=== PATIENT | female | born 1965 | race Caucasian/White ===

== ENCOUNTER 2017-12-20 13:48 | Emergency (ER) | payer MEDICARE, MEDICAID ==
[~2017-12-20] VITALS: Ht 5619.3 cm; Wt 132.8 kg
[~2017-12-20 13:48] MED LIST: ALPR-624 PO; ASPI-1 PO; BUDE10.2 INH; CLA10T PO; DULO-31 PO; ESTR1PAT77 TOP; FLUT16SP10 NS; IBUP-1984 PO; LUBI8CAP PO; MEDR2.5T PO; MONT10TA21 PO; PER10325T PO; RANI150C11 PO; SYN0.075T PO; TOP25T PO; TRAZ-91 PO
[2017-12-20 14:16] VITALS: BP 156/75
[2017-12-20] MEDS ORDERED: AZIT-57 PO (14:23)
== END 2017-12-20 14:30 | disposition home or self-care (01) ==
LOC: ER 13:48
DX: J20.9 Acute bronchitis, unspecified (principal); J45.909 Unspecified asthma, uncomplicated; G89.29 Other chronic pain; Z60.2 Problems related to living alone; Z56.0 Unemployment, unspecified; Z79.82 Long term (current) use of aspirin; Z79.899 Other long term (current) drug therapy
CPT/HCPCS: 99283

== ENCOUNTER 2017-12-27 13:15 | Emergency (ER) | payer MEDICARE, MEDICAID ==
[~2017-12-27] VITALS: Ht 5187.1 cm; Wt 132.0 kg
[2017-12-27 14:15] LABS: BASOPHILS % (AUTO) 0.3 % (0-1); EOSINOPHILS # (AUTO) 0.2 X10'3 (0-0.9); EOSINOPHILS % (AUTO) 2.8 % (0-6); HEMATOCRIT 32.3 % (35.0-45.0); HEMOGLOBIN 11.1 g/dl (12.0-16.0); LYMPHOCYTES # (AUTO) 1.5 X10'3 (1.1-4.8); MEAN CORPUSCULAR HEMOGLOBIN 30.4 PG (27.0-31.0); MEAN CORPUSCULAR HGB CONC 34.3 % (33.0-36.5); MEAN CORPUSCULAR VOLUME 88.5 FL (78-98); MEAN PLATELET VOLUME 7.3 FL (7.4-10.4); MONOCYTES # (AUTO) 0.4 X10'3 (0-0.9); MONOCYTES % (AUTO) 5.3 % (2-12); NEUTROPHILS # (AUTO) 5.2 X10'3 (1.8-7.7); NEUTROPHILS % (AUTO) 70.6 % (42-75); PLATELET COUNT 310 X10'3 (140-440); RED BLOOD COUNT 3.65 X10'6 (4.20-5.60); RED CELL DISTRIBUTION WIDTH 15.2 % (11.5-14.5); WHITE BLOOD COUNT 7.3 X10'3 (4.5-11.0)
[2017-12-27 14:33] LABS: ALANINE AMINOTRANSFERASE 25 U/L (12-78); ALBUMIN 3.5 G/DL (3.4-5.0); ALBUMIN/GLOBULIN RATIO 0.9 (1.1-1.5); ALKALINE PHOSPHATASE 84 IU/L (46-116); ANION GAP 8 (8-16); ASPARTATE AMINO TRANSFERASE 17 U/L (10-37); BILIRUBIN,TOTAL 0.2 MG/DL (0.1-1.0); BLOOD UREA NITROGEN 17 MG/DL (7-18); BUN/CREATININE RATIO 16.3 (6.6-38.0); CALCIUM 8.8 MG/DL (8.5-10.1); CHLORIDE 103 MMOL/L (99-107); CREATINE KINASE 119 U/L (26-192); CREATININE 1.04 MG/DL (0.40-0.90); GLUCOSE 107 MG/DL (70-104); MAGNESIUM 2.1 MG/DL (1.5-2.4); SODIUM 138 MMOL/L (135-145); TOTAL CARBON DIOXIDE 26.9 MMOL/L (24-32); TOTAL PROTEIN 7.2 G/DL (6.4-8.2); eGFR 56 ML/MIN
[2017-12-27 16:34] VITALS: BP 151/89
== END 2017-12-27 16:36 | disposition home or self-care (01) ==
LOC: ER 13:15
DX: D64.9 Anemia, unspecified (principal); R60.9 Edema, unspecified; J45.909 Unspecified asthma, uncomplicated; M19.90 Unspecified osteoarthritis, unspecified site; G89.29 Other chronic pain; G43.909 Migraine, unspecified, not intractable, without status migrainosus; Z60.2 Problems related to living alone; Z56.0 Unemployment, unspecified; Z88.8 Allergy status to other drugs, medicaments and biological substances; Z79.82 Long term (current) use of aspirin; Z79.899 Other long term (current) drug therapy
CPT/HCPCS: 36415; 80053; 82550; 83735; 83880; 84484; 85025; 93005; 93306; 99285

== ENCOUNTER 2019-02-10 17:54 | Emergency (ER) | payer MEDICARE, MEDICAID ==
[~2019-02-10] VITALS: Ht 170.2 cm; Wt 159.1 kg
[2019-02-10 19:56] LABS: BASOPHILS % (AUTO) 0.5 % (0-1); EOSINOPHILS # (AUTO) 0.2 X10'3 (0-0.9); EOSINOPHILS % (AUTO) 3.1 % (0-6); HEMATOCRIT 30.9 % (35.0-45.0); HEMOGLOBIN 10.4 g/dl (12.0-16.0); LYMPHOCYTES # (AUTO) 1.4 X10'3 (1.1-4.8); LYMPHOCYTES % (AUTO) 26.4 % (21-51); MEAN CORPUSCULAR HEMOGLOBIN 29.6 PG (27.0-31.0); MEAN CORPUSCULAR HGB CONC 33.6 g/dL (33.0-36.5); MEAN CORPUSCULAR VOLUME 88.1 FL (78-98); MEAN PLATELET VOLUME 7.3 FL (7.4-10.4); MONOCYTES # (AUTO) 0.5 X10'3 (0-0.9); MONOCYTES % (AUTO) 9.6 % (2-12); NEUTROPHILS # (AUTO) 3.2 X10'3 (1.8-7.7); NEUTROPHILS % (AUTO) 60.4 % (42-75); PLATELET COUNT 212 X10'3 (140-440); RED BLOOD COUNT 3.51 X10'6 (4.20-5.60); RED CELL DISTRIBUTION WIDTH 15.9 % (11.5-14.5); WHITE BLOOD COUNT 5.3 X10'3 (4.5-11.0)
[2019-02-10 20:11] LABS: ALANINE AMINOTRANSFERASE 22 U/L (12-78); ALBUMIN 3.4 G/DL (3.4-5.0); ALKALINE PHOSPHATASE 101 IU/L (46-116); ANION GAP 7 (8-16); ASPARTATE AMINO TRANSFERASE 14 U/L (10-37); BILIRUBIN,TOTAL 0.2 MG/DL (0.1-1.0); BLOOD UREA NITROGEN 14 MG/DL (7-18); BUN/CREATININE RATIO 14.3 (6.6-38.0); CALCIUM 8.7 MG/DL (8.5-10.1); CHLORIDE 106 MMOL/L (99-107); CREATININE 0.98 MG/DL (0.40-0.90); GLUCOSE 109 MG/DL (70-104); SODIUM 139 MMOL/L (135-145); TOTAL CARBON DIOXIDE 25.6 MMOL/L (24-32); TOTAL PROTEIN 6.9 G/DL (6.4-8.2); eGFR 60 ML/MIN
[2019-02-10] MEDS ORDERED: ipratropium/albuterol 3ml nebule NEB ONE (20:30)
[2019-02-10] MEDS ORDERED: ondansetron/PF 4mg/2ml inj IV ONE (20:35)
--- NOTE | 2019-02-10 20:45 | NUR ---
RT at bedside for breathing tx
[2019-02-10 20:47] VITALS: BP 144/72
[2019-02-10] MEDS ORDERED: iohexol 350MG/ML 100ml bottle IV ONE (20:51)
[2019-02-10] MEDS ORDERED: CefTRIAXone/D5W-Rocephin 1gm 50 ML IV ONE (21:50)
[2019-02-10] MEDS ORDERED: furosemide 10 MG/1 ML 10ml inj IV ONE (21:50)
== END 2019-02-10 22:31 | disposition home or self-care (01) ==
LOC: ER 17:54
DX: R06.02 Shortness of breath (principal); R60.0 Localized edema; G43.909 Migraine, unspecified, not intractable, without status migrainosus; J45.909 Unspecified asthma, uncomplicated; M19.90 Unspecified osteoarthritis, unspecified site; G89.29 Other chronic pain; Z56.0 Unemployment, unspecified; Z90.49 Acquired absence of other specified parts of digestive tract; Z98.890 Other specified postprocedural states; Z88.8 Allergy status to other drugs, medicaments and biological substances; Z88.1 Allergy status to other antibiotic agents; Z79.899 Other long term (current) drug therapy; Z79.82 Long term (current) use of aspirin
CPT/HCPCS: 36415; 71046; 71275; 80053; 83605; 83880; 84145; 85025; 87040; 93005; 94640; 94760; 96374; 96375; 99284; J0696; J1940; J2405; Q9967

== ENCOUNTER 2019-04-01 13:17 | Emergency (ER) | payer MEDICARE, MEDICAID ==
[~2019-04-01] VITALS: Ht 167.6 cm; Wt 145.9 kg
[~2019-04-01 13:17] MED LIST changes: -ALPR-624 PO; -ASPI-1 PO; -PER10325T PO
[2019-04-01 13:27] VITALS: BP 129/67
[2019-04-01 13:53] LABS: CLARITY,URINE CLEAR (Clear); COLOR,URINE YELLOW (Yellow); GLUCOSE, URINE NEGATIVE (Neg); KETONES,URINE NEGATIVE (Neg); LEUKOCYTE ESTERASE ,URINE NEGATIVE (Neg); NITRITES, URINE NEGATIVE (Neg); OCCULT BLOOD,URINE NEGATIVE (Neg); PROTEIN,URINE NEGATIVE (Neg); UROBILINOGEN,URINE 0.2 E.U/dL (0.2-1.0)
[2019-04-01] MEDS ORDERED: ketorolac tromethamine 15mg/ml inj. IM ONE (13:55)
[2019-04-01 13:56] LABS: UA COLLECTION TYPE CLN CATCH MIDSTREAM
[2019-04-01] MEDS ORDERED: ONDA4TAB6 PO (14:09)
[2019-04-01] MEDS ORDERED: LIDO700A32 TOP (14:09)
== END 2019-04-01 14:28 | disposition home or self-care (01) ==
LOC: ER 13:18
DX: M54.5 Low back pain (principal); R11.0 Nausea; R30.9 Painful micturition, unspecified; G43.909 Migraine, unspecified, not intractable, without status migrainosus; G89.29 Other chronic pain; J45.909 Unspecified asthma, uncomplicated; E07.9 Disorder of thyroid, unspecified; F41.9 Anxiety disorder, unspecified; F32.9 Major depressive disorder, single episode, unspecified; Z90.89 Acquired absence of other organs; Z56.0 Unemployment, unspecified; Z88.1 Allergy status to other antibiotic agents; Z79.899 Other long term (current) drug therapy
CPT/HCPCS: 81003; 96372; 99283; J1885

== ENCOUNTER 2019-05-21 06:58 | Emergency (ER) | payer MEDICARE, MEDICAID ==
[~2019-05-21] VITALS: Ht 170.2 cm; Wt 158.0 kg
[~2019-05-21 06:58] MED LIST changes: +ALBU18HF2 INH; +ARIP2TAB11 PO; +BUPR1TAB36 MT; +CALC1TAB97 PO; +CEPH500C5 PO; -CLA10T PO; -ESTR1PAT77 TOP; +ESTR1PAT82 TOP; +NYSPWD TOP; +PREG150C PO; -RANI150C11 PO; +RANI150T8 PO
[2019-05-21 08:25] LABS: BASOPHILS # (AUTO) 0.1 X10'3 (0-0.2); LYMPHOCYTES # (AUTO) 1.3 X10'3 (1.1-4.8)
[2019-05-21 08:27] LABS: BASOPHILS % (AUTO) 1.1 % (0-1); EOSINOPHILS # (AUTO) 0.3 X10'3 (0-0.9); EOSINOPHILS % (AUTO) 2.9 % (0-6); HEMATOCRIT 30.1 % (35.0-45.0); HEMOGLOBIN 10.1 g/dl (12.0-16.0); LYMPHOCYTES % (AUTO) 14.1 % (21-51); MEAN CORPUSCULAR HEMOGLOBIN 32.6 PG (27.0-31.0); MEAN CORPUSCULAR HGB CONC 33.6 g/dL (33.0-36.5); MEAN CORPUSCULAR VOLUME 96.8 FL (78-98); MEAN PLATELET VOLUME 7.8 FL (7.4-10.4); MONOCYTES # (AUTO) 0.4 X10'3 (0-0.9); MONOCYTES % (AUTO) 4.8 % (2-12); NEUTROPHILS # (AUTO) 7.2 X10'3 (1.8-7.7); NEUTROPHILS % (AUTO) 77.1 % (42-75); PLATELET COUNT 290 X10'3 (140-440); RED BLOOD COUNT 3.11 X10'6 (4.20-5.60); RED CELL DISTRIBUTION WIDTH 18.2 % (11.5-14.5); WHITE BLOOD COUNT 9.4 X10'3 (4.5-11.0)
[2019-05-21 08:30] LABS: LARGE PLATELETS FEW; PLATELET ESTIMATE NORMAL
[2019-05-21 08:38] LABS: PARTIAL THROMBOPLASTIN TIME 28 SECONDS (22-32)
[2019-05-21 08:45] LABS: ALANINE AMINOTRANSFERASE 19 U/L (12-78); ALBUMIN 3.7 G/DL (3.4-5.0); ALKALINE PHOSPHATASE 95 IU/L (46-116); ANION GAP 8 (8-16); ASPARTATE AMINO TRANSFERASE 12 U/L (10-37); BILIRUBIN,TOTAL 0.3 MG/DL (0.1-1.0); BLOOD UREA NITROGEN 17 MG/DL (7-18); CALCIUM 9.2 MG/DL (8.5-10.1); CHLORIDE 105 MMOL/L (99-107); CREATININE 1.13 MG/DL (0.40-0.90); GLUCOSE 104 MG/DL (70-104); SODIUM 137 MMOL/L (135-145); TOTAL CARBON DIOXIDE 24.3 MMOL/L (24-32); TOTAL PROTEIN 7.4 G/DL (6.4-8.2); eGFR 51 ML/MIN
[2019-05-21] MEDS ORDERED: ketorolac trometh inj. 60 MG/2 ML VIAL IM ONE (09:35)
[2019-05-21 10:03] VITALS: BP 168/84
== END 2019-05-21 10:04 | disposition home or self-care (01) ==
LOC: ER 06:58
DX: M25.562 Pain in left knee (principal); G43.909 Migraine, unspecified, not intractable, without status migrainosus; J45.909 Unspecified asthma, uncomplicated; E07.9 Disorder of thyroid, unspecified; M19.90 Unspecified osteoarthritis, unspecified site; G89.29 Other chronic pain; F41.9 Anxiety disorder, unspecified; F32.9 Major depressive disorder, single episode, unspecified; F41.0 Panic disorder [episodic paroxysmal anxiety]; Z90.49 Acquired absence of other specified parts of digestive tract; Z98.890 Other specified postprocedural states; Z56.0 Unemployment, unspecified; Z88.1 Allergy status to other antibiotic agents; Z88.8 Allergy status to other drugs, medicaments and biological substances; Z79.2 Long term (current) use of antibiotics; Z79.899 Other long term (current) drug therapy
CPT/HCPCS: 36415; 71045; 73564; 80053; 85025; 85610; 85730; 93971; 96372; 99284; J1885

== ENCOUNTER 2019-06-19 20:31 | Emergency (ER) | payer MEDICARE, MEDICAID ==
[~2019-06-19] VITALS: Ht 170.2 cm; Wt 141.8 kg
[~2019-06-19 20:31] MED LIST changes: -ARIP2TAB11 PO; +ARIP2TAB20 PO
--- NOTE | 2019-06-19 21:15 | NUR ---
pt amb with steady gait to restroom, using walker
[2019-06-19] MEDS ORDERED: ketorolac trometh inj. 60 MG/2 ML VIAL IM ONE (23:10)
--- NOTE | 2019-06-19 23:40 | NUR ---
pt would like pain medication, "toradol is not cutting it", Rajeev GIANG at bedside to talk with pt, gave verbal order for norco 5mg 1 tab x1 now
[2019-06-19] MEDS ORDERED: HYDROcodone/acetaminophen 5mg/325mg tablet PO ONE (23:45)
[2019-06-19 23:50] VITALS: BP 176/75
== END 2019-06-19 23:47 | disposition home or self-care (01) ==
LOC: ER 20:31
DX: R10.32 Left lower quadrant pain (principal); R00.0 Tachycardia, unspecified; E66.01 Morbid (severe) obesity due to excess calories; G43.909 Migraine, unspecified, not intractable, without status migrainosus; J45.909 Unspecified asthma, uncomplicated; M19.90 Unspecified osteoarthritis, unspecified site; G89.29 Other chronic pain; F41.9 Anxiety disorder, unspecified; F32.9 Major depressive disorder, single episode, unspecified; F41.0 Panic disorder [episodic paroxysmal anxiety]; Z88.1 Allergy status to other antibiotic agents; Z88.8 Allergy status to other drugs, medicaments and biological substances; Z79.899 Other long term (current) drug therapy; Z87.19 Personal history of other diseases of the digestive system; Z90.49 Acquired absence of other specified parts of digestive tract; Z56.0 Unemployment, unspecified; Z60.2 Problems related to living alone; Z98.890 Other specified postprocedural states; Z90.89 Acquired absence of other organs; Z87.09 Personal history of other diseases of the respiratory system; Z96.653 Presence of artificial knee joint, bilateral
CPT/HCPCS: 96372; 99283; J1885

== ENCOUNTER 2019-12-15 05:27 | Day surgery (SDC) | payer MEDICARE, MEDICAID ==
[2019-12-05 16:56] LABS: BASOPHILS # (AUTO) 0.1 X10'3 (0-0.2); BASOPHILS % (AUTO) 0.8 % (0-1); EOSINOPHILS # (AUTO) 0.2 X10'3 (0-0.9); EOSINOPHILS % (AUTO) 1.8 % (0-6); LYMPHOCYTES # (AUTO) 1.9 X10'3 (1.1-4.8); LYMPHOCYTES % (AUTO) 20.4 % (21-51); MEAN CORPUSCULAR HEMOGLOBIN 30.8 PG (27.0-31.0); MEAN CORPUSCULAR HGB CONC 33.6 g/dL (33.0-36.5); MEAN CORPUSCULAR VOLUME 91.6 FL (78-98); MEAN PLATELET VOLUME 7.3 FL (7.4-10.4); MONOCYTES # (AUTO) 0.6 X10'3 (0-0.9); MONOCYTES % (AUTO) 6.6 % (2-12); NEUTROPHILS # (AUTO) 6.5 X10'3 (1.8-7.7); NEUTROPHILS % (AUTO) 70.4 % (42-75); PRE OP HEMATOCRIT 36.3 % (35.0-45.0); PRE OP HEMOGLOBIN 12.2 g/dL (12.0-16.0); PRE OP PLATELET COUNT 287 X10'3 (140-440); RED BLOOD COUNT 3.96 X10'6 (4.20-5.60)
[2019-12-05 17:08] LABS: PRE OP PROTIME 9.9 SECONDS (9.0-12.0)
[2019-12-05 17:13] LABS: ALBUMIN 4.1 G/DL (3.4-5.0); ALBUMIN/GLOBULIN RATIO 1.1 (1.1-1.5); ALKALINE PHOSPHATASE 115 IU/L (46-116); BLOOD UREA NITROGEN 16 MG/DL (7-18); BUN/CREATININE RATIO 14.3 (6.6-38.0); CALCIUM 9.2 MG/DL (8.5-10.1); CHLORIDE 104 MMOL/L (99-107); CREATININE 1.12 MG/DL (0.40-0.90); PRE OP ALT 16 U/L (30-65); PRE OP ANION GAP 6 (8-16); PRE OP AST 13 U/L (10-37); PRE OP BILIRUB, TOTAL 0.3 MG/DL (0.0-1.0); PRE OP GLUCOSE 102 MG/DL (70-104); PRE OP POTASSIUM 3.6 MMOL/L (3.4-5.1); PRE OP SODIUM 139 MMOL/L (135-145); TOTAL CARBON DIOXIDE 28.6 MMOL/L (24-32); TOTAL PROTEIN 7.7 G/DL (6.4-8.2); eGFR 51 ML/MIN
[~2019-12-15] VITALS: Ht 170.2 cm; Wt 150.0 kg
[~2019-12-15 05:27] MED LIST changes: +BUSP5TAB3 PO; -CEPH500C5 PO; +DICY10CA88 PO; -IBUP-1984 PO; +LASIX PO; +POTA20TA19 PO; +PROM25TA14 PO; -RANI150T8 PO; +SENN-183 PO; +ringers solution, lacted 1,000 ML IV SCH
[2019-12-15] MEDS ORDERED: famotidine 20mg tablet PO ONE (05:30)
[2019-12-15] MEDS ORDERED: ceFAZolin 2gm in dextrose, iso 50 ML IV ONE (05:30)
[2019-12-15 05:40] VITALS: BP 134/83
[2019-12-15] MEDS ORDERED: BUPIVAcaine/PF 2.5mg/ml (0.25%) 10ml vial ONE (06:39)
[2019-12-15] MEDS ORDERED: ringers solution, lacted 1,000 ML IV SCH (07:23)
[2019-12-15] MEDS ORDERED: meperidine/PF 25mg/ml syringe IV PRN ×3 (07:25)
[2019-12-15] MEDS ORDERED: ondansetron/PF 4mg/2ml inj IV PRN (07:25)
[2019-12-15] MEDS ORDERED: fentaNYL/PF 50MCG/1 ML 2ML syringe ONE (07:35)
[2019-12-15] MEDS ORDERED: LIDOcaine 0.5% (5mg/ml) 50ml vial ONE (07:35)
[2019-12-15] MEDS ORDERED: MIDAZolam 5mg/5ml vial ONE (07:35)
[2019-12-15] MEDS ORDERED: ketorolac trometh. 30mg/ml inj. ONE (07:36)
[2019-12-15] MEDS ORDERED: LIDOcaine 1% 30ml preserv. free vial ONE (07:41)
[2019-12-15] MEDS ORDERED: sevoflurane 250ml liquid IH ONE (08:10)
[2019-12-15] MEDS ORDERED: dexamethasone sod phosphate 10mg/ml inj ONE (08:10)
[2019-12-15] MEDS ORDERED: fentaNYL /PF 50mcg/ml 5ml ampule ONE (08:41)
[2019-12-15] MEDS ORDERED: ondansetron/PF 4mg/2ml inj ONE (08:54)
[2019-12-15] MEDS ORDERED: propofol inj 20 ML IV ONE (08:58)
[2019-12-15] MEDS ORDERED: labetalol 20mg/4ml (5mg/ml) syringe IV ONE (08:58)
[2019-12-15] MEDS ORDERED: LIDOcaine 2% (20mg/ml) 5ml vial ONE (08:58)
[2019-12-15 09:07] VITALS: BP 161/78
--- NOTE | 2019-12-15 09:07 | NUR ---
Received from OR via [facility], accompanied by Anesthesiologist TEETEE and report given by Anesthesiolgist. Pt responsiding to questions, VS WNL. No pain in hand but states she has back pain. 22G right forearm and LR at 100CC/hr. Surgery site with gauze wrap and moy wrap, good cap refill present to fingers, pulses palpable. No bleeding or significant swelling.
[2019-12-15 09:17] VITALS: BP 154/82
[2019-12-15 09:27] VITALS: BP 161/80
[2019-12-15 09:37] VITALS: BP 157/82
--- NOTE | 2019-12-15 09:47 | NUR ---
Pt discharged to vehicle by wheelchair without incident. Pt and carer verbalize understanding of all discharge information. States she has no pain to hand but has terrible back pain and requests another prescription because she "had to use Dr Wynne's prescription for her back pain prior to surgery". Dr Wynne at bedside at time of discharge and states he cannot write another prescription, but to use ibuoprofen and tylenol, ice and elevate. Pt understands instructions. All belongings returned to patient including cane. IV dc'd.
== END 2019-12-15 09:47 | disposition home or self-care (01) ==
LOC: PAS 05:27
PROVIDERS: ATTEND Orthopaedic Surgery Hand Surgery
DX: G56.02 Carpal tunnel syndrome, left upper limb (principal); G56.22 Lesion of ulnar nerve, left upper limb; I10 Essential (primary) hypertension; M17.12 Unilateral primary osteoarthritis, left knee; F06.31 Mood disorder due to known physiological condition with depressive features; F32.9 Major depressive disorder, single episode, unspecified; G43.909 Migraine, unspecified, not intractable, without status migrainosus; J45.909 Unspecified asthma, uncomplicated; G89.29 Other chronic pain; E66.01 Morbid (severe) obesity due to excess calories; Z68.43 Body mass index [BMI] 50.0-59.9, adult; Z98.890 Other specified postprocedural states; Z79.899 Other long term (current) drug therapy; Z96.653 Presence of artificial knee joint, bilateral; Z88.8 Allergy status to other drugs, medicaments and biological substances; Z79.01 Long term (current) use of anticoagulants
CPT/HCPCS: 29848; 36415; 64718; 80053; 82948; 85025; 85610; 85730; 93005; J1100; J1885; J2001; J2250; J2405; J2704; J3010; J3490; A4215; A6449; A7000; J7120

== ENCOUNTER 2020-04-15 08:39 | Day surgery (SDC) | payer MEDICARE, MEDICAID ==
[2020-04-11 13:00] LABS: BASOPHILS % (AUTO) 0.5 % (0-1); EOSINOPHILS # (AUTO) 0.1 X10'3 (0-0.9); EOSINOPHILS % (AUTO) 1.3 % (0-6); LYMPHOCYTES # (AUTO) 1.5 X10'3 (1.1-4.8); LYMPHOCYTES % (AUTO) 16.4 % (21-51); MEAN CORPUSCULAR HEMOGLOBIN 32.4 PG (27.0-31.0); MEAN CORPUSCULAR HGB CONC 33.2 g/dL (33.0-36.5); MEAN CORPUSCULAR VOLUME 97.5 FL (78-98); MEAN PLATELET VOLUME 6.9 FL (7.4-10.4); MONOCYTES # (AUTO) 0.6 X10'3 (0-0.9); MONOCYTES % (AUTO) 6.1 % (2-12); NEUTROPHILS # (AUTO) 6.9 X10'3 (1.8-7.7); NEUTROPHILS % (AUTO) 75.7 % (42-75); PRE OP HEMATOCRIT 35.3 % (35.0-45.0); PRE OP HEMOGLOBIN 11.7 g/dL (12.0-16.0); PRE OP PLATELET COUNT 284 X10'3 (140-440); RED BLOOD COUNT 3.62 X10'6 (4.20-5.60); RED CELL DISTRIBUTION WIDTH 16.6 % (11.5-14.5)
[2020-04-11 13:11] LABS: ALBUMIN 2.6 G/DL (3.4-5.0); ALBUMIN/GLOBULIN RATIO 0.6 (1.1-1.5); ALKALINE PHOSPHATASE 119 IU/L (46-116); BLOOD UREA NITROGEN 22 MG/DL (7-18); CALCIUM 8.9 MG/DL (8.5-10.1); CHLORIDE 106 MMOL/L (99-107); CREATININE 1.22 MG/DL (0.40-0.90); PRE OP ALT 21 U/L (30-65); PRE OP ANION GAP 6 (8-16); PRE OP AST 11 U/L (10-37); PRE OP BILIRUB, TOTAL 0.3 MG/DL (0.0-1.0); PRE OP GLUCOSE 117 MG/DL (70-104); PRE OP POTASSIUM 3.8 MMOL/L (3.4-5.1); PRE OP SODIUM 138 MMOL/L (135-145); TOTAL CARBON DIOXIDE 25.9 MMOL/L (24-32); TOTAL PROTEIN 7.2 G/DL (6.4-8.2); eGFR 46 ML/MIN
[~2020-04-15] VITALS: Ht 170.2 cm; Wt 157.3 kg
[2020-04-15] VITALS (7 sets, daily range): BP systolic 141–167; BP diastolic 73–86
[~2020-04-15 08:39] MED LIST changes: +BUPIVAcaine/PF 2.5mg/ml (0.25%) 10ml vial ONE; -BUPR1TAB36 MT; +BUPR1TAB45 MT; +FERR325T28 PO; -MEDR2.5T PO; +MEDR5TAB4 PO; +PREG150C46 PO; -PROM25TA14 PO; +TRIA454O; +[UNRECOGNIZED DRUG - CODE] PO; +ceFAZolin inj. 3,000 MG in normal saline 100ml IV soln 100 ML IV ONE; +famotidine 20mg tablet PO ONE
[2020-04-15] MEDS ORDERED: ringers solution, lacted 1,000 ML IV SCH ×2 (10:42→12:21)
[2020-04-15] MEDS ORDERED: hydrALAZINE 20mg/ml inj. IV PRN (10:45)
[2020-04-15] MEDS ORDERED: morphine 4 MG/ML inj SYRINge IV PRN ×2 (10:45→12:25)
[2020-04-15] MEDS ORDERED: ondansetron/PF 4mg/2ml inj IV PRN ×2 (10:45→12:25)
[2020-04-15] MEDS ORDERED: fentaNYL/PF 50MCG/1 ML 2ML syringe IV PRN ×4 (10:45→12:25)
[2020-04-15] MEDS ORDERED: labetalol 20mg/4ml (5mg/ml) syringe IV PRN (10:45)
[2020-04-15] MEDS ORDERED: morphine 2 MG/ML inj. syringe IV PRN ×2 (10:45→12:25)
[2020-04-15] MEDS ORDERED: LIDOcaine 0.5% (5mg/ml) 50ml vial ONE ×2 (10:50→12:09)
[2020-04-15] MEDS ORDERED: naloxone 0.4 mg/ml inj ONE (11:37)
[2020-04-15] MEDS ORDERED: midazolam 2 mg/2 ml injection ONE ×2 (11:37→12:18)
[2020-04-15] MEDS ORDERED: fentaNYL/PF 50MCG/1 ML 2ML syringe ONE ×2 (11:37→12:18)
[2020-04-15] MEDS ORDERED: meperidine/PF 25mg/ml syringe IV PRN (12:25)
[2020-04-15] MEDS ORDERED: acetaminophen 1,000mg/100ml IV 100 ML IV PRN (12:25)
[2020-04-15] MEDS ORDERED: fentaNYL /PF 50mcg/ml 5ml ampule ONE (12:44)
[2020-04-15] MEDS ORDERED: propofol inj 20 ML IV ONE (12:44)
--- NOTE | 2020-04-15 13:00 | NUR ---
Received from OR via BED, accompanied by Anesthesiologist DR MEJÍA and report given by Anesthesiolgist. PATIENT A&OX4, DENIES PAIN, V/S WNL, NEUROVASCULAR CHECKS INTACT, SCD ON, LEFT WRIST DRESSING CDI ELEVATED WITH ICE BAG APPLIED. 20G PIV RUE
--- NOTE | 2020-04-15 13:50 | NUR ---
PATIENT A&OX4, DENIES PAIN, V/S WNL, NEUROVASCULAR CHECKS INTACT, SCD OFF, LEFT WRIST DRESSING CDI ELEVATED WITH ICE BAG APPLIED. 20G RUE D/C WITH NO COMPLICATIONS OBSERVED. I HAVE REVIEWED D/C INSTRUCTIONS WITH PATIENT AND FAMILY AND THEY HAVE VERBALIZED UNDERSTANDING. PATIENT D/C HOME WITH FAMILY TO TRANSPORT AND ALL BELONGINGS.
== END 2020-04-15 13:50 | disposition home or self-care (01) ==
LOC: PAS 08:39
PROVIDERS: ATTEND Orthopaedic Surgery Hand Surgery
DX: G56.01 Carpal tunnel syndrome, right upper limb (principal); J45.909 Unspecified asthma, uncomplicated; F32.9 Major depressive disorder, single episode, unspecified; K21.9 Gastro-esophageal reflux disease without esophagitis; G89.29 Other chronic pain; E03.9 Hypothyroidism, unspecified; I10 Essential (primary) hypertension; M19.90 Unspecified osteoarthritis, unspecified site; G43.909 Migraine, unspecified, not intractable, without status migrainosus; E66.09 Other obesity due to excess calories; Z68.42 Body mass index [BMI] 45.0-49.9, adult; Z98.890 Other specified postprocedural states; Z96.653 Presence of artificial knee joint, bilateral; Z86.14 Personal history of Methicillin resistant Staphylococcus aureus infection; Z88.8 Allergy status to other drugs, medicaments and biological substances; Z79.899 Other long term (current) drug therapy; Z11.59 Encounter for screening for other viral diseases
CPT/HCPCS: 29848; 36415; 80053; 82948; 85025; A6222; J0690; J2001; J2250; J2310; J2704; J3010; J3490; U0003; A4215; A6449; J7120

== ENCOUNTER 2020-06-21 10:33 | Emergency (ER) | payer BC, MEDICAID ==
[~2020-06-21] VITALS: Ht 170.2 cm; Wt 136.4 kg
[~2020-06-21 10:33] MED LIST changes: -BUPIVAcaine/PF 2.5mg/ml (0.25%) 10ml vial ONE; -ceFAZolin inj. 3,000 MG in normal saline 100ml IV soln 100 ML IV ONE; -famotidine 20mg tablet PO ONE; -ringers solution, lacted 1,000 ML IV SCH
[2020-06-21] MEDS ORDERED: HYDR-4383 PO (13:46)
[2020-06-21 14:21] VITALS: BP 173/89
== END 2020-06-21 14:00 | disposition home or self-care (01) ==
LOC: ER 10:35
DX: M76.61 Achilles tendinitis, right leg (principal); L03.116 Cellulitis of left lower limb; L03.115 Cellulitis of right lower limb; G43.909 Migraine, unspecified, not intractable, without status migrainosus; J45.909 Unspecified asthma, uncomplicated; M19.90 Unspecified osteoarthritis, unspecified site; G89.29 Other chronic pain; F41.9 Anxiety disorder, unspecified; F32.9 Major depressive disorder, single episode, unspecified; Z90.49 Acquired absence of other specified parts of digestive tract; Z90.89 Acquired absence of other organs; Z98.890 Other specified postprocedural states
CPT/HCPCS: 99282; 99283

== ENCOUNTER 2020-06-26 10:19 | Day surgery (SDC) | payer BC, MEDICAID ==
[~2020-06-26 10:19] MED LIST changes: +HYDR-4383 PO
[2020-06-26] MEDS ORDERED: LIDOcaine 2% 5ml jelly ONE (12:03)
[2020-06-26 13:31] LABS: ALANINE AMINOTRANSFERASE 17 U/L (12-78); ALBUMIN 3.9 G/DL (3.4-5.0); ALBUMIN/GLOBULIN RATIO 0.9 (1.1-1.5); ALKALINE PHOSPHATASE 119 IU/L (46-116); ANION GAP 10 (8-16); ASPARTATE AMINO TRANSFERASE 16 U/L (10-37); BILIRUBIN,TOTAL 0.4 MG/DL (0.1-1.0); BLOOD UREA NITROGEN 15 MG/DL (7-18); BUN/CREATININE RATIO 13.9 (6.6-38.0); C-REACTIVE PROTEIN 6.93 MG/DL (0.0-0.5); CALCIUM 9.2 MG/DL (8.5-10.1); CHLORIDE 101 MMOL/L (99-107); CREATININE 1.08 MG/DL (0.40-0.90); GLUCOSE 101 MG/DL (70-104); SODIUM 134 MMOL/L (135-145); TOTAL CARBON DIOXIDE 23.3 MMOL/L (24-32); TOTAL PROTEIN 8.3 G/DL (6.4-8.2); eGFR 53 ML/MIN
[2020-06-26 13:42] LABS: BASOPHILS # (AUTO) 0.1 X10'3 (0-0.2); BASOPHILS % (AUTO) 0.8 % (0-1); EOSINOPHILS # (AUTO) 0.2 X10'3 (0-0.9); EOSINOPHILS % (AUTO) 1.8 % (0-6); HEMATOCRIT 35.4 % (35.0-45.0); HEMOGLOBIN 11.9 g/dl (12.0-16.0); LYMPHOCYTES # (AUTO) 1.3 X10'3 (1.1-4.8); LYMPHOCYTES % (AUTO) 15.3 % (21-51); MEAN CORPUSCULAR HEMOGLOBIN 32.8 PG (27.0-31.0); MEAN CORPUSCULAR HGB CONC 33.6 g/dL (33.0-36.5); MEAN CORPUSCULAR VOLUME 97.9 FL (78-98); MEAN PLATELET VOLUME 6.7 FL (7.4-10.4); MONOCYTES # (AUTO) 0.5 X10'3 (0-0.9); MONOCYTES % (AUTO) 5.8 % (2-12); NEUTROPHILS # (AUTO) 6.7 X10'3 (1.8-7.7); NEUTROPHILS % (AUTO) 76.3 % (42-75); PLATELET COUNT 303 X10'3 (140-440); RED BLOOD COUNT 3.62 X10'6 (4.20-5.60); RED CELL DISTRIBUTION WIDTH 16.4 % (11.5-14.5); WHITE BLOOD COUNT 8.8 X10'3 (4.5-11.0)
[2020-06-26] MEDS ORDERED: gentamicin 0.1% topical ointment 15gm TP ONE (13:48)
[2020-06-26 14:17] LABS: ANISOCYTOSIS 1+; PLATELET ESTIMATE NORMAL
== END 2020-06-26 14:18 | disposition home or self-care (01) ==
LOC: WOUND CARE 10:19
PROVIDERS: ATTEND Nurse Practitioner
DX: T81.89XA Other complications of procedures, not elsewhere classified, initial encounter (principal); I83.228 Varicose veins of left lower extremity with both ulcer of other part of lower extremity and inflammation; L97.821 Non-pressure chronic ulcer of other part of left lower leg limited to breakdown of skin; I83.218 Varicose veins of right lower extremity with both ulcer of other part of lower extremity and inflammation; L97.811 Non-pressure chronic ulcer of other part of right lower leg limited to breakdown of skin; E07.9 Disorder of thyroid, unspecified; G43.909 Migraine, unspecified, not intractable, without status migrainosus; G89.29 Other chronic pain; M19.90 Unspecified osteoarthritis, unspecified site; J45.909 Unspecified asthma, uncomplicated; F41.9 Anxiety disorder, unspecified; F32.9 Major depressive disorder, single episode, unspecified; Z90.89 Acquired absence of other organs; Z90.49 Acquired absence of other specified parts of digestive tract; Z98.890 Other specified postprocedural states; Z86.14 Personal history of Methicillin resistant Staphylococcus aureus infection; Z79.899 Other long term (current) drug therapy; Y83.8 Other surgical procedures as the cause of abnormal reaction of the patient, or of later complication, without mention of misadventure at the time of the procedure; Y92.238 Other place in hospital as the place of occurrence of the external cause
CPT/HCPCS: 29581; 36415; 73590; 80053; 83036; 85008; 85025; 85651; 86140; 87070; 87075; 87077; 87102; 87186; 97597; 97598

== ENCOUNTER 2020-06-28 13:00 | Outpatient (CLI) | payer BC, MEDICAID ==
[2020-06-28] MEDS ORDERED: gentamicin 0.1% topical ointment 15gm TP ONE (15:07)
== END 2020-06-28 16:10 | disposition home or self-care (01) ==
LOC: WOUND CARE 13:00 → EDSTATUS 13:00 → WOUND CARE 16:10
PROVIDERS: ATTEND Nurse Practitioner
DX: T81.89XD Other complications of procedures, not elsewhere classified, subsequent encounter (principal); I83.228 Varicose veins of left lower extremity with both ulcer of other part of lower extremity and inflammation; L97.821 Non-pressure chronic ulcer of other part of left lower leg limited to breakdown of skin; I83.218 Varicose veins of right lower extremity with both ulcer of other part of lower extremity and inflammation; L97.811 Non-pressure chronic ulcer of other part of right lower leg limited to breakdown of skin; E07.9 Disorder of thyroid, unspecified; M19.90 Unspecified osteoarthritis, unspecified site; G89.29 Other chronic pain; J45.909 Unspecified asthma, uncomplicated; G43.909 Migraine, unspecified, not intractable, without status migrainosus; F41.9 Anxiety disorder, unspecified; F32.9 Major depressive disorder, single episode, unspecified; Z90.49 Acquired absence of other specified parts of digestive tract; Z90.89 Acquired absence of other organs; Z98.890 Other specified postprocedural states; Z86.14 Personal history of Methicillin resistant Staphylococcus aureus infection; Y83.8 Other surgical procedures as the cause of abnormal reaction of the patient, or of later complication, without mention of misadventure at the time of the procedure
CPT/HCPCS: 97597; 97598

== ENCOUNTER 2020-07-10 09:36 | Day surgery (SDC) | payer BC, MEDICAID ==
[2020-07-10] MEDS ORDERED: LIDOcaine 2% 5ml jelly ONE (10:08)
[2020-07-10] MEDS ORDERED: gentamicin 0.1% topical ointment 15gm TP ONE (10:55)
== END 2020-07-10 11:32 | disposition home or self-care (01) ==
LOC: WOUND CARE 09:36
PROVIDERS: ATTEND Nurse Practitioner
DX: I83.228 Varicose veins of left lower extremity with both ulcer of other part of lower extremity and inflammation (principal); L97.822 Non-pressure chronic ulcer of other part of left lower leg with fat layer exposed; I83.218 Varicose veins of right lower extremity with both ulcer of other part of lower extremity and inflammation; L97.812 Non-pressure chronic ulcer of other part of right lower leg with fat layer exposed; L97.412 Non-pressure chronic ulcer of right heel and midfoot with fat layer exposed; E07.9 Disorder of thyroid, unspecified; M19.90 Unspecified osteoarthritis, unspecified site; G89.29 Other chronic pain; J45.909 Unspecified asthma, uncomplicated; G43.909 Migraine, unspecified, not intractable, without status migrainosus; F41.9 Anxiety disorder, unspecified; F32.9 Major depressive disorder, single episode, unspecified; Z90.49 Acquired absence of other specified parts of digestive tract; Z90.89 Acquired absence of other organs; Z98.890 Other specified postprocedural states; Z86.14 Personal history of Methicillin resistant Staphylococcus aureus infection; Z79.899 Other long term (current) drug therapy
CPT/HCPCS: 93970; 97597; 97598

== ENCOUNTER → 2020-07-11 | Day surgery (SDC) | payer BC, MEDICAID ==
[~2020-07-11] MED LIST changes: +LIDOcaine 1% w/epiNEPHrine 1:200,000 30ml vial ONE; +gentamicin 0.1% topical ointment 15gm TP ONE
== END | disposition home or self-care (01) ==
LOC: WOUND CARE 12:46
PROVIDERS: ATTEND Nurse Practitioner
DX: I83.228 Varicose veins of left lower extremity with both ulcer of other part of lower extremity and inflammation (principal); L97.822 Non-pressure chronic ulcer of other part of left lower leg with fat layer exposed; I83.218 Varicose veins of right lower extremity with both ulcer of other part of lower extremity and inflammation; L97.812 Non-pressure chronic ulcer of other part of right lower leg with fat layer exposed; L97.412 Non-pressure chronic ulcer of right heel and midfoot with fat layer exposed; E07.9 Disorder of thyroid, unspecified; M19.90 Unspecified osteoarthritis, unspecified site; G89.29 Other chronic pain; J45.909 Unspecified asthma, uncomplicated; G43.909 Migraine, unspecified, not intractable, without status migrainosus; F41.9 Anxiety disorder, unspecified; F32.9 Major depressive disorder, single episode, unspecified; Z90.49 Acquired absence of other specified parts of digestive tract; Z90.89 Acquired absence of other organs; Z98.890 Other specified postprocedural states
CPT/HCPCS: 87070; 87075; 87077; 87102; 87186; 97597

== ENCOUNTER 2020-07-17 12:36 | Day surgery (SDC) | payer BC, MEDICAID ==
[~2020-07-17 12:36] MED LIST changes: -LIDOcaine 1% w/epiNEPHrine 1:200,000 30ml vial ONE; -gentamicin 0.1% topical ointment 15gm TP ONE
[2020-07-17] MEDS ORDERED: LIDOcaine 2% 5ml jelly ONE (13:21)
[2020-07-17] MEDS ORDERED: LIDOcaine 1% w/epiNEPHrine 1:200,000 30ml vial ONE (13:45)
[2020-07-17] MEDS ORDERED: gentamicin 0.1% topical ointment 15gm TP ONE (14:17)
== END 2020-07-17 13:41 | disposition home or self-care (01) ==
LOC: WOUND CARE 12:36
PROVIDERS: ATTEND Nurse Practitioner
DX: I83.228 Varicose veins of left lower extremity with both ulcer of other part of lower extremity and inflammation (principal); L97.822 Non-pressure chronic ulcer of other part of left lower leg with fat layer exposed; I83.218 Varicose veins of right lower extremity with both ulcer of other part of lower extremity and inflammation; L97.812 Non-pressure chronic ulcer of other part of right lower leg with fat layer exposed; L97.412 Non-pressure chronic ulcer of right heel and midfoot with fat layer exposed; E07.9 Disorder of thyroid, unspecified; M19.90 Unspecified osteoarthritis, unspecified site; G89.29 Other chronic pain; E66.9 Obesity, unspecified; J45.909 Unspecified asthma, uncomplicated; G43.909 Migraine, unspecified, not intractable, without status migrainosus; F41.9 Anxiety disorder, unspecified; F32.9 Major depressive disorder, single episode, unspecified; Z90.49 Acquired absence of other specified parts of digestive tract; Z90.89 Acquired absence of other organs; Z98.890 Other specified postprocedural states; Z68.42 Body mass index [BMI] 45.0-49.9, adult
CPT/HCPCS: 97597; 97598

== ENCOUNTER 2020-07-25 08:30 | Day surgery (SDC) | payer BC, MEDICAID ==
[2020-07-25] MEDS ORDERED: LIDOcaine 2% 5ml jelly ONE (09:05)
[2020-07-25] MEDS ORDERED: gentamicin 0.1% topical ointment 15gm TP ONE (09:36)
== END 2020-07-25 11:06 | disposition home or self-care (01) ==
LOC: WOUND CARE 08:30
PROVIDERS: ATTEND Nurse Practitioner
DX: I83.228 Varicose veins of left lower extremity with both ulcer of other part of lower extremity and inflammation (principal); L97.821 Non-pressure chronic ulcer of other part of left lower leg limited to breakdown of skin; I83.218 Varicose veins of right lower extremity with both ulcer of other part of lower extremity and inflammation; L97.811 Non-pressure chronic ulcer of other part of right lower leg limited to breakdown of skin; S91.301D Unspecified open wound, right foot, subsequent encounter; E07.9 Disorder of thyroid, unspecified; M19.90 Unspecified osteoarthritis, unspecified site; G89.29 Other chronic pain; J45.909 Unspecified asthma, uncomplicated; G43.909 Migraine, unspecified, not intractable, without status migrainosus; F41.9 Anxiety disorder, unspecified; F32.9 Major depressive disorder, single episode, unspecified; Z90.49 Acquired absence of other specified parts of digestive tract; Z90.89 Acquired absence of other organs; Z98.890 Other specified postprocedural states; Z86.14 Personal history of Methicillin resistant Staphylococcus aureus infection; X58.XXXD Exposure to other specified factors, subsequent encounter
CPT/HCPCS: 97597; 97598

== ENCOUNTER 2020-07-31 15:57 | Outpatient (CLI) | payer BC, MEDICAID ==
[~2020-07-31] VITALS: Ht 170.2 cm; Wt 136.1 kg
[2020-07-31] MEDS ORDERED: albuterol 2.5 MG/3 ML nebule NEB PRN (16:40)
== END 2020-07-31 23:59 | disposition home or self-care (01) ==
LOC: RT 15:57
DX: J45.909 Unspecified asthma, uncomplicated (principal); J98.4 Other disorders of lung
CPT/HCPCS: 94060; 94729; 94760

== ENCOUNTER 2020-08-01 09:45 | Day surgery (SDC) | payer BC, MEDICAID ==
[2020-08-01] MEDS ORDERED: LIDOcaine 2% 5ml jelly ONE (10:11)
[2020-08-01] MEDS ORDERED: gentamicin 0.1% topical ointment 15gm TP ONE (10:36)
== END 2020-08-01 11:15 | disposition home or self-care (01) ==
LOC: WOUND CARE 09:45
PROVIDERS: ATTEND Nurse Practitioner
DX: I83.228 Varicose veins of left lower extremity with both ulcer of other part of lower extremity and inflammation (principal); L97.821 Non-pressure chronic ulcer of other part of left lower leg limited to breakdown of skin; I83.218 Varicose veins of right lower extremity with both ulcer of other part of lower extremity and inflammation; L97.811 Non-pressure chronic ulcer of other part of right lower leg limited to breakdown of skin; S91.301D Unspecified open wound, right foot, subsequent encounter; E07.9 Disorder of thyroid, unspecified; M19.90 Unspecified osteoarthritis, unspecified site; G89.29 Other chronic pain; J45.909 Unspecified asthma, uncomplicated; G43.909 Migraine, unspecified, not intractable, without status migrainosus; F41.9 Anxiety disorder, unspecified; F32.9 Major depressive disorder, single episode, unspecified; Z90.49 Acquired absence of other specified parts of digestive tract; Z90.89 Acquired absence of other organs; Z98.890 Other specified postprocedural states; Z86.14 Personal history of Methicillin resistant Staphylococcus aureus infection; X58.XXXD Exposure to other specified factors, subsequent encounter
CPT/HCPCS: 97597; 97598

== ENCOUNTER 2020-08-08 10:10 | Day surgery (SDC) | payer BC, MEDICAID ==
[2020-08-08] MEDS ORDERED: LIDOcaine 2% 5ml jelly ONE (11:01)
== END 2020-08-08 12:07 | disposition home or self-care (01) ==
LOC: WOUND CARE 10:10
PROVIDERS: ATTEND Nurse Practitioner
DX: I83.228 Varicose veins of left lower extremity with both ulcer of other part of lower extremity and inflammation (principal); L97.822 Non-pressure chronic ulcer of other part of left lower leg with fat layer exposed; I83.218 Varicose veins of right lower extremity with both ulcer of other part of lower extremity and inflammation; L97.812 Non-pressure chronic ulcer of other part of right lower leg with fat layer exposed; L97.412 Non-pressure chronic ulcer of right heel and midfoot with fat layer exposed; E07.9 Disorder of thyroid, unspecified; M19.90 Unspecified osteoarthritis, unspecified site; G89.29 Other chronic pain; E66.9 Obesity, unspecified; J45.909 Unspecified asthma, uncomplicated; G43.909 Migraine, unspecified, not intractable, without status migrainosus; F41.9 Anxiety disorder, unspecified; F32.9 Major depressive disorder, single episode, unspecified; Z90.49 Acquired absence of other specified parts of digestive tract; Z90.89 Acquired absence of other organs; Z98.890 Other specified postprocedural states; Z68.42 Body mass index [BMI] 45.0-49.9, adult; Z79.899 Other long term (current) drug therapy; Z86.14 Personal history of Methicillin resistant Staphylococcus aureus infection
CPT/HCPCS: 87070; 87075; 87077; 87102; 87186; 97597; 97598

== ENCOUNTER 2020-08-15 11:10 | Outpatient (CLI) | payer BC, MEDICAID ==
[2020-08-15] MEDS ORDERED: LIDOcaine 2% 5ml jelly ONE (12:05)
== END 2020-08-15 12:50 | disposition home or self-care (01) ==
LOC: WOUND CARE 11:10
PROVIDERS: ATTEND Nurse Practitioner
DX: I83.228 Varicose veins of left lower extremity with both ulcer of other part of lower extremity and inflammation (principal); L97.821 Non-pressure chronic ulcer of other part of left lower leg limited to breakdown of skin; I83.218 Varicose veins of right lower extremity with both ulcer of other part of lower extremity and inflammation; L97.811 Non-pressure chronic ulcer of other part of right lower leg limited to breakdown of skin; L97.512 Non-pressure chronic ulcer of other part of right foot with fat layer exposed; L97.221 Non-pressure chronic ulcer of left calf limited to breakdown of skin; L97.211 Non-pressure chronic ulcer of right calf limited to breakdown of skin; E07.9 Disorder of thyroid, unspecified; M19.90 Unspecified osteoarthritis, unspecified site; G89.29 Other chronic pain; J45.909 Unspecified asthma, uncomplicated; G43.909 Migraine, unspecified, not intractable, without status migrainosus; E66.9 Obesity, unspecified; F41.9 Anxiety disorder, unspecified; F32.9 Major depressive disorder, single episode, unspecified; Z90.49 Acquired absence of other specified parts of digestive tract; Z90.89 Acquired absence of other organs; Z98.890 Other specified postprocedural states; Z86.14 Personal history of Methicillin resistant Staphylococcus aureus infection; Z68.42 Body mass index [BMI] 45.0-49.9, adult; Z79.899 Other long term (current) drug therapy
CPT/HCPCS: 97597; 97598

== ENCOUNTER 2020-08-22 11:37 | Outpatient (CLI) | payer BC, MEDICAID ==
[2020-08-22] MEDS ORDERED: LIDOcaine 2% 5ml jelly ONE ×2 (15:58→16:04)
--- NOTE | 2020-08-22 16:12 | NUR ---
7F DUAL LUMEN MIDLINE PLACED TO RIGHT CEPHALIC VEIN X'S 3 ATTEMPTS WITH SUCCESS USING ULTRASOUND GUIDANCE. TIP ENDS MID-AXILLARY. BOTH PORTS ASPIRATE BLOOD AND FLUSH WITHOUT DIFFICULTY. SITE COVERED WITH STERILE DRESSING. Alphonso TUCKER PICC GIL
== END 2020-08-22 23:59 | disposition home or self-care (01) ==
LOC: WOUND CARE 11:37 → EDSTATUS 12:00 → WOUND CARE 23:59
PROVIDERS: ATTEND Nurse Practitioner
DX: I83.228 Varicose veins of left lower extremity with both ulcer of other part of lower extremity and inflammation (principal); L97.821 Non-pressure chronic ulcer of other part of left lower leg limited to breakdown of skin; I83.218 Varicose veins of right lower extremity with both ulcer of other part of lower extremity and inflammation; L97.812 Non-pressure chronic ulcer of other part of right lower leg with fat layer exposed; L97.221 Non-pressure chronic ulcer of left calf limited to breakdown of skin; L97.211 Non-pressure chronic ulcer of right calf limited to breakdown of skin; E07.9 Disorder of thyroid, unspecified; M19.90 Unspecified osteoarthritis, unspecified site; G89.29 Other chronic pain; J45.909 Unspecified asthma, uncomplicated; G43.909 Migraine, unspecified, not intractable, without status migrainosus; E66.9 Obesity, unspecified; F41.9 Anxiety disorder, unspecified; F32.9 Major depressive disorder, single episode, unspecified; Z90.49 Acquired absence of other specified parts of digestive tract; Z90.89 Acquired absence of other organs; Z98.890 Other specified postprocedural states; Z86.14 Personal history of Methicillin resistant Staphylococcus aureus infection; Z68.42 Body mass index [BMI] 45.0-49.9, adult; Z79.899 Other long term (current) drug therapy
CPT/HCPCS: 76937; 93922; 93925; 97597; 97598

== ENCOUNTER 2020-08-29 08:56 | Outpatient (CLI) | payer BC, MEDICAID ==
[2020-08-29] MEDS ORDERED: LIDOcaine 2% 5ml jelly ONE (09:27)
== END 2020-08-29 23:59 | disposition home or self-care (01) ==
LOC: WOUND CARE 08:56 → EDSTATUS 09:00 → WOUND CARE 23:59
PROVIDERS: ATTEND Nurse Practitioner
DX: I83.228 Varicose veins of left lower extremity with both ulcer of other part of lower extremity and inflammation (principal); L97.822 Non-pressure chronic ulcer of other part of left lower leg with fat layer exposed; I83.218 Varicose veins of right lower extremity with both ulcer of other part of lower extremity and inflammation; L97.812 Non-pressure chronic ulcer of other part of right lower leg with fat layer exposed; L97.221 Non-pressure chronic ulcer of left calf limited to breakdown of skin; L97.211 Non-pressure chronic ulcer of right calf limited to breakdown of skin; E07.9 Disorder of thyroid, unspecified; M19.90 Unspecified osteoarthritis, unspecified site; G89.29 Other chronic pain; J45.909 Unspecified asthma, uncomplicated; G43.909 Migraine, unspecified, not intractable, without status migrainosus; E66.9 Obesity, unspecified; F41.9 Anxiety disorder, unspecified; F32.9 Major depressive disorder, single episode, unspecified; Z90.49 Acquired absence of other specified parts of digestive tract; Z90.89 Acquired absence of other organs; Z98.890 Other specified postprocedural states; Z86.14 Personal history of Methicillin resistant Staphylococcus aureus infection; Z68.42 Body mass index [BMI] 45.0-49.9, adult; Z79.899 Other long term (current) drug therapy
CPT/HCPCS: 97597; 97598

== ENCOUNTER 2020-09-05 08:42 | Outpatient (CLI) | payer BC, MEDICAID ==
[2020-09-05] MEDS ORDERED: LIDOcaine 2% 5ml jelly ONE ×2 (09:11→09:35)
== END 2020-09-05 23:59 | disposition home or self-care (01) ==
LOC: WOUND CARE 08:42
PROVIDERS: ATTEND Nurse Practitioner
DX: I83.228 Varicose veins of left lower extremity with both ulcer of other part of lower extremity and inflammation (principal); L97.822 Non-pressure chronic ulcer of other part of left lower leg with fat layer exposed; L97.221 Non-pressure chronic ulcer of left calf limited to breakdown of skin; I83.218 Varicose veins of right lower extremity with both ulcer of other part of lower extremity and inflammation; L97.812 Non-pressure chronic ulcer of other part of right lower leg with fat layer exposed; L97.211 Non-pressure chronic ulcer of right calf limited to breakdown of skin; E07.9 Disorder of thyroid, unspecified; M19.90 Unspecified osteoarthritis, unspecified site; G89.29 Other chronic pain; J45.909 Unspecified asthma, uncomplicated; G43.909 Migraine, unspecified, not intractable, without status migrainosus; E66.9 Obesity, unspecified; F41.9 Anxiety disorder, unspecified; F32.9 Major depressive disorder, single episode, unspecified; Z90.49 Acquired absence of other specified parts of digestive tract; Z90.89 Acquired absence of other organs; Z98.890 Other specified postprocedural states; Z86.14 Personal history of Methicillin resistant Staphylococcus aureus infection; Z68.42 Body mass index [BMI] 45.0-49.9, adult; Z79.899 Other long term (current) drug therapy
CPT/HCPCS: 97597; 97598

== ENCOUNTER 2020-09-12 09:05 | Outpatient (CLI) | payer BC, MEDICAID ==
[2020-09-12] MEDS ORDERED: LIDOcaine 2% 5ml jelly ONE (10:47)
== END 2020-09-12 23:59 | disposition home or self-care (01) ==
LOC: WOUND CARE 09:05
PROVIDERS: ATTEND Nurse Practitioner
DX: I83.228 Varicose veins of left lower extremity with both ulcer of other part of lower extremity and inflammation (principal); L97.822 Non-pressure chronic ulcer of other part of left lower leg with fat layer exposed; L97.221 Non-pressure chronic ulcer of left calf limited to breakdown of skin; I83.218 Varicose veins of right lower extremity with both ulcer of other part of lower extremity and inflammation; L97.812 Non-pressure chronic ulcer of other part of right lower leg with fat layer exposed; L97.211 Non-pressure chronic ulcer of right calf limited to breakdown of skin; E07.9 Disorder of thyroid, unspecified; M19.90 Unspecified osteoarthritis, unspecified site; G89.29 Other chronic pain; J45.909 Unspecified asthma, uncomplicated; G43.909 Migraine, unspecified, not intractable, without status migrainosus; E66.9 Obesity, unspecified; F41.9 Anxiety disorder, unspecified; F32.9 Major depressive disorder, single episode, unspecified; Z90.49 Acquired absence of other specified parts of digestive tract; Z90.89 Acquired absence of other organs; Z98.890 Other specified postprocedural states; Z86.14 Personal history of Methicillin resistant Staphylococcus aureus infection; Z68.42 Body mass index [BMI] 45.0-49.9, adult; Z79.899 Other long term (current) drug therapy
CPT/HCPCS: 29581

== ENCOUNTER 2020-09-19 09:30 | Outpatient (CLI) | payer BC, MEDICAID ==
[2020-09-19] MEDS ORDERED: LIDOcaine 2% 5ml jelly ONE (10:23)
== END 2020-09-19 23:59 | disposition home or self-care (01) ==
LOC: WOUND CARE 09:30
PROVIDERS: ATTEND Nurse Practitioner
DX: I83.228 Varicose veins of left lower extremity with both ulcer of other part of lower extremity and inflammation (principal); L97.822 Non-pressure chronic ulcer of other part of left lower leg with fat layer exposed; L97.221 Non-pressure chronic ulcer of left calf limited to breakdown of skin; I83.218 Varicose veins of right lower extremity with both ulcer of other part of lower extremity and inflammation; L97.812 Non-pressure chronic ulcer of other part of right lower leg with fat layer exposed; L97.211 Non-pressure chronic ulcer of right calf limited to breakdown of skin; I83.215 Varicose veins of right lower extremity with both ulcer other part of foot and inflammation; L97.512 Non-pressure chronic ulcer of other part of right foot with fat layer exposed; E07.9 Disorder of thyroid, unspecified; M19.90 Unspecified osteoarthritis, unspecified site; G89.29 Other chronic pain; J45.909 Unspecified asthma, uncomplicated; G43.909 Migraine, unspecified, not intractable, without status migrainosus; L84 Corns and callosities; E66.9 Obesity, unspecified; F41.9 Anxiety disorder, unspecified; F32.9 Major depressive disorder, single episode, unspecified; Z90.49 Acquired absence of other specified parts of digestive tract; Z90.89 Acquired absence of other organs; Z98.890 Other specified postprocedural states; Z86.14 Personal history of Methicillin resistant Staphylococcus aureus infection; Z68.42 Body mass index [BMI] 45.0-49.9, adult; Z79.899 Other long term (current) drug therapy
CPT/HCPCS: 11042; 11045

== ENCOUNTER 2020-09-25 09:48 | Outpatient (CLI) | payer BC, MEDICAID ==
[2020-09-25] MEDS ORDERED: LIDOcaine 2% 5ml jelly ONE (10:28)
== END 2020-09-25 23:59 | disposition home or self-care (01) ==
LOC: WOUND CARE 09:48
PROVIDERS: ATTEND Nurse Practitioner
DX: I83.228 Varicose veins of left lower extremity with both ulcer of other part of lower extremity and inflammation (principal); L97.822 Non-pressure chronic ulcer of other part of left lower leg with fat layer exposed; L97.221 Non-pressure chronic ulcer of left calf limited to breakdown of skin; I83.218 Varicose veins of right lower extremity with both ulcer of other part of lower extremity and inflammation; L97.812 Non-pressure chronic ulcer of other part of right lower leg with fat layer exposed; L97.211 Non-pressure chronic ulcer of right calf limited to breakdown of skin; I83.215 Varicose veins of right lower extremity with both ulcer other part of foot and inflammation; L97.512 Non-pressure chronic ulcer of other part of right foot with fat layer exposed; E07.9 Disorder of thyroid, unspecified; M19.90 Unspecified osteoarthritis, unspecified site; G89.29 Other chronic pain; J45.909 Unspecified asthma, uncomplicated; G43.909 Migraine, unspecified, not intractable, without status migrainosus; L84 Corns and callosities; E66.9 Obesity, unspecified; F41.9 Anxiety disorder, unspecified; F32.9 Major depressive disorder, single episode, unspecified; Z90.49 Acquired absence of other specified parts of digestive tract; Z90.89 Acquired absence of other organs; Z98.890 Other specified postprocedural states; Z86.14 Personal history of Methicillin resistant Staphylococcus aureus infection; Z68.42 Body mass index [BMI] 45.0-49.9, adult; Z79.899 Other long term (current) drug therapy
CPT/HCPCS: 97597; 97598

== ENCOUNTER 2020-10-03 09:58 | Outpatient (CLI) | payer BC, MEDICAID ==
[2020-10-03] MEDS ORDERED: LIDOcaine 2% 5ml jelly ONE ×2 (10:28)
== END 2020-10-03 23:59 | disposition home or self-care (01) ==
LOC: WOUND CARE 09:58
PROVIDERS: ATTEND Nurse Practitioner
DX: I83.228 Varicose veins of left lower extremity with both ulcer of other part of lower extremity and inflammation (principal); L97.822 Non-pressure chronic ulcer of other part of left lower leg with fat layer exposed; L97.221 Non-pressure chronic ulcer of left calf limited to breakdown of skin; I83.218 Varicose veins of right lower extremity with both ulcer of other part of lower extremity and inflammation; L97.812 Non-pressure chronic ulcer of other part of right lower leg with fat layer exposed; L97.211 Non-pressure chronic ulcer of right calf limited to breakdown of skin; I83.215 Varicose veins of right lower extremity with both ulcer other part of foot and inflammation; L97.512 Non-pressure chronic ulcer of other part of right foot with fat layer exposed; E07.9 Disorder of thyroid, unspecified; M19.90 Unspecified osteoarthritis, unspecified site; G89.29 Other chronic pain; J45.909 Unspecified asthma, uncomplicated; K21.9 Gastro-esophageal reflux disease without esophagitis; G43.909 Migraine, unspecified, not intractable, without status migrainosus; L84 Corns and callosities; E66.9 Obesity, unspecified; F41.9 Anxiety disorder, unspecified; F32.9 Major depressive disorder, single episode, unspecified; Z90.49 Acquired absence of other specified parts of digestive tract; Z86.14 Personal history of Methicillin resistant Staphylococcus aureus infection; Z68.42 Body mass index [BMI] 45.0-49.9, adult; Z79.899 Other long term (current) drug therapy
CPT/HCPCS: 87070; 87075; 87077; 87186; 97597; 97598

== ENCOUNTER 2020-10-10 09:34 | Outpatient (CLI) | payer BC, MEDICAID ==
[2020-10-10] MEDS ORDERED: LIDOcaine 2% 5ml jelly ONE (10:16)
[2020-10-10] MEDS ORDERED: gentamicin 0.1% topical ointment 15gm TP ONE (11:35)
== END 2020-10-10 23:59 | disposition home or self-care (01) ==
LOC: WOUND CARE 09:34
PROVIDERS: ATTEND Nurse Practitioner
DX: I83.228 Varicose veins of left lower extremity with both ulcer of other part of lower extremity and inflammation (principal); L97.822 Non-pressure chronic ulcer of other part of left lower leg with fat layer exposed; L97.221 Non-pressure chronic ulcer of left calf limited to breakdown of skin; I83.218 Varicose veins of right lower extremity with both ulcer of other part of lower extremity and inflammation; L97.812 Non-pressure chronic ulcer of other part of right lower leg with fat layer exposed; L97.211 Non-pressure chronic ulcer of right calf limited to breakdown of skin; I83.215 Varicose veins of right lower extremity with both ulcer other part of foot and inflammation; L97.512 Non-pressure chronic ulcer of other part of right foot with fat layer exposed; S91.301A Unspecified open wound, right foot, initial encounter; E07.9 Disorder of thyroid, unspecified; M19.90 Unspecified osteoarthritis, unspecified site; G89.29 Other chronic pain; J45.909 Unspecified asthma, uncomplicated; K21.9 Gastro-esophageal reflux disease without esophagitis; G43.909 Migraine, unspecified, not intractable, without status migrainosus; L84 Corns and callosities; E66.9 Obesity, unspecified; R41.3 Other amnesia; F41.9 Anxiety disorder, unspecified; F32.9 Major depressive disorder, single episode, unspecified; Z90.49 Acquired absence of other specified parts of digestive tract; Z86.14 Personal history of Methicillin resistant Staphylococcus aureus infection; Z68.42 Body mass index [BMI] 45.0-49.9, adult; Z79.899 Other long term (current) drug therapy; X58.XXXA Exposure to other specified factors, initial encounter; Y93.89 Activity, other specified; Y92.89 Other specified places as the place of occurrence of the external cause; Y99.8 Other external cause status
CPT/HCPCS: 73630; 97597; 97598

== ENCOUNTER 2020-10-17 09:26 | Outpatient (CLI) | payer BC, MEDICAID ==
[2020-10-17] MEDS ORDERED: LIDOcaine 2% 5ml jelly ONE (10:03)
--- NOTE | 2020-10-17 12:00 | NUR ---
7f DUAL LUMEN MIDLINE PLACED TO RIGHT CEPHALIC VEIN X'S 1 ATTEMPT WITH SUCCESS USING ULTRASOUND GUIDANCE. TIP ENDS MID-AXILLARY. BOTH LUMENS ASPIRATE BLOOD EASILY AND FLUSH WITHOUT DIFFICULTY. Alphonso TUCKER PICC RN
[2020-10-17] MEDS ORDERED: gentamicin 0.1% topical ointment 15gm TP ONE (12:10)
== END 2020-10-17 23:59 | disposition home or self-care (01) ==
LOC: WOUND CARE 09:26
PROVIDERS: ATTEND Nurse Practitioner
DX: I83.228 Varicose veins of left lower extremity with both ulcer of other part of lower extremity and inflammation (principal); L97.822 Non-pressure chronic ulcer of other part of left lower leg with fat layer exposed; L97.221 Non-pressure chronic ulcer of left calf limited to breakdown of skin; I83.218 Varicose veins of right lower extremity with both ulcer of other part of lower extremity and inflammation; L97.812 Non-pressure chronic ulcer of other part of right lower leg with fat layer exposed; L97.211 Non-pressure chronic ulcer of right calf limited to breakdown of skin; I83.215 Varicose veins of right lower extremity with both ulcer other part of foot and inflammation; L97.512 Non-pressure chronic ulcer of other part of right foot with fat layer exposed; E07.9 Disorder of thyroid, unspecified; M19.90 Unspecified osteoarthritis, unspecified site; G89.29 Other chronic pain; J45.909 Unspecified asthma, uncomplicated; K21.9 Gastro-esophageal reflux disease without esophagitis; G43.909 Migraine, unspecified, not intractable, without status migrainosus; L84 Corns and callosities; E66.9 Obesity, unspecified; R41.3 Other amnesia; F41.9 Anxiety disorder, unspecified; F32.9 Major depressive disorder, single episode, unspecified; Z90.49 Acquired absence of other specified parts of digestive tract; Z86.14 Personal history of Methicillin resistant Staphylococcus aureus infection; Z68.42 Body mass index [BMI] 45.0-49.9, adult; Z79.899 Other long term (current) drug therapy
CPT/HCPCS: 97597; 97598

== ENCOUNTER 2020-10-23 09:25 | Outpatient (CLI) | payer BC, MEDICAID ==
[2020-10-23] MEDS ORDERED: gentamicin 0.1% topical ointment 15gm TP ONE (10:23)
== END 2020-10-23 23:59 | disposition home or self-care (01) ==
LOC: WOUND CARE 09:25 → EDSTATUS 09:30 → WOUND CARE 23:59
PROVIDERS: ATTEND Nurse Practitioner
DX: I83.228 Varicose veins of left lower extremity with both ulcer of other part of lower extremity and inflammation (principal); L97.822 Non-pressure chronic ulcer of other part of left lower leg with fat layer exposed; L97.221 Non-pressure chronic ulcer of left calf limited to breakdown of skin; I83.218 Varicose veins of right lower extremity with both ulcer of other part of lower extremity and inflammation; L97.812 Non-pressure chronic ulcer of other part of right lower leg with fat layer exposed; L97.211 Non-pressure chronic ulcer of right calf limited to breakdown of skin; I83.215 Varicose veins of right lower extremity with both ulcer other part of foot and inflammation; L97.512 Non-pressure chronic ulcer of other part of right foot with fat layer exposed; E07.9 Disorder of thyroid, unspecified; M19.90 Unspecified osteoarthritis, unspecified site; G89.29 Other chronic pain; J45.909 Unspecified asthma, uncomplicated; K21.9 Gastro-esophageal reflux disease without esophagitis; G43.909 Migraine, unspecified, not intractable, without status migrainosus; L84 Corns and callosities; E66.9 Obesity, unspecified; R41.3 Other amnesia; F41.9 Anxiety disorder, unspecified; F32.9 Major depressive disorder, single episode, unspecified; Z90.49 Acquired absence of other specified parts of digestive tract; Z86.14 Personal history of Methicillin resistant Staphylococcus aureus infection; Z68.42 Body mass index [BMI] 45.0-49.9, adult; Z79.899 Other long term (current) drug therapy; Z98.890 Other specified postprocedural states
CPT/HCPCS: 29581

== ENCOUNTER → 2020-10-30 | Outpatient (CLI) | payer BC, MEDICAID ==
[~2020-10-30] MED LIST changes: +FURO40TA4 PO; +LIDOcaine 2% 5ml jelly ONE; +ONDA-103 PO; +ONDA4TAB6 PO; -TRIA454O; +TRIA454O TP
== END | disposition home or self-care (01) ==
LOC: WOUND CARE 09:27
PROVIDERS: ATTEND Nurse Practitioner Family
DX: I83.228 Varicose veins of left lower extremity with both ulcer of other part of lower extremity and inflammation (principal); L97.821 Non-pressure chronic ulcer of other part of left lower leg limited to breakdown of skin; L97.221 Non-pressure chronic ulcer of left calf limited to breakdown of skin; I83.218 Varicose veins of right lower extremity with both ulcer of other part of lower extremity and inflammation; L97.812 Non-pressure chronic ulcer of other part of right lower leg with fat layer exposed; L97.211 Non-pressure chronic ulcer of right calf limited to breakdown of skin; I83.215 Varicose veins of right lower extremity with both ulcer other part of foot and inflammation; L97.512 Non-pressure chronic ulcer of other part of right foot with fat layer exposed; E07.9 Disorder of thyroid, unspecified; M19.90 Unspecified osteoarthritis, unspecified site; G89.29 Other chronic pain; J45.909 Unspecified asthma, uncomplicated; K21.9 Gastro-esophageal reflux disease without esophagitis; G43.909 Migraine, unspecified, not intractable, without status migrainosus; L84 Corns and callosities; E66.9 Obesity, unspecified; R41.3 Other amnesia; F41.9 Anxiety disorder, unspecified; F32.9 Major depressive disorder, single episode, unspecified; Z90.49 Acquired absence of other specified parts of digestive tract; Z86.14 Personal history of Methicillin resistant Staphylococcus aureus infection; Z68.42 Body mass index [BMI] 45.0-49.9, adult; Z79.899 Other long term (current) drug therapy; Z98.890 Other specified postprocedural states
CPT/HCPCS: 29581

== ENCOUNTER 2020-11-07 09:35 | Outpatient (CLI) | payer BC, MEDICAID ==
[~2020-11-07 09:35] MED LIST changes: -FURO40TA4 PO; -LIDOcaine 2% 5ml jelly ONE; -ONDA-103 PO; -ONDA4TAB6 PO
[2020-11-07] MEDS ORDERED: LIDOcaine 2% 5ml jelly ONE ×2 (10:19)
--- NOTE | 2020-11-07 10:25 | NUR ---
PT ARRIVED FOR OUTPATIENT WOUND CARE TREATMENT. PT HAS AN EXISTING MIDLINE PLACED BY MYSELF APPX [address] KILLIAN AND ERIC DILLARD OK TO REMOVE MIDLINE. MIDLINE REMOVED WITH TIP INTACT. MANUAL PRESSURE HELD AT SITE AND THEN COVERED WITH STERILE 4X4 AND TEGADERM. PT DENIES ANY UNANSWERED QUESTIONS, PROBLEMS OR COMPLAINTS. NO SIGNS OF BLEEDING FROM REMOVAL SITE UPON DISCHARGE. Alphonso TUCKER PICC RN
[2020-11-18] MEDS ORDERED: FURO40TA4 PO (16:11)
[2020-11-18] MEDS ORDERED: ONDA-103 PO (16:11)
== END 2020-11-07 23:59 | disposition home or self-care (01) ==
LOC: WOUND CARE 09:35
PROVIDERS: ATTEND Nurse Practitioner
DX: I83.228 Varicose veins of left lower extremity with both ulcer of other part of lower extremity and inflammation (principal); L97.822 Non-pressure chronic ulcer of other part of left lower leg with fat layer exposed; L97.221 Non-pressure chronic ulcer of left calf limited to breakdown of skin; I83.218 Varicose veins of right lower extremity with both ulcer of other part of lower extremity and inflammation; L97.812 Non-pressure chronic ulcer of other part of right lower leg with fat layer exposed; L97.411 Non-pressure chronic ulcer of right heel and midfoot limited to breakdown of skin; L97.211 Non-pressure chronic ulcer of right calf limited to breakdown of skin; I83.215 Varicose veins of right lower extremity with both ulcer other part of foot and inflammation; L97.512 Non-pressure chronic ulcer of other part of right foot with fat layer exposed; E07.9 Disorder of thyroid, unspecified; M19.90 Unspecified osteoarthritis, unspecified site; G89.29 Other chronic pain; J45.909 Unspecified asthma, uncomplicated; K21.9 Gastro-esophageal reflux disease without esophagitis; G43.909 Migraine, unspecified, not intractable, without status migrainosus; L84 Corns and callosities; E66.9 Obesity, unspecified; R41.3 Other amnesia; F41.9 Anxiety disorder, unspecified; F32.9 Major depressive disorder, single episode, unspecified; Z90.49 Acquired absence of other specified parts of digestive tract; Z86.14 Personal history of Methicillin resistant Staphylococcus aureus infection; Z68.42 Body mass index [BMI] 45.0-49.9, adult; Z79.899 Other long term (current) drug therapy; Z98.890 Other specified postprocedural states
CPT/HCPCS: 97597; 97598

== ENCOUNTER 2020-11-09 13:36 | Emergency (ER) | payer BC, MEDICAID ==
[~2020-11-09] VITALS: Ht 170.2 cm; Wt 136.4 kg
[~2020-11-09 13:36] MED LIST changes: +TRIA454O; -TRIA454O TP
[2020-11-09] MEDS ORDERED: ONDA4TAB6 PO (14:03)
== END 2020-11-09 14:16 | disposition home or self-care (01) ==
LOC: ER 13:36
DX: G43.909 Migraine, unspecified, not intractable, without status migrainosus (principal); R11.0 Nausea; R53.83 Other fatigue; Z20.828 Contact with and (suspected) exposure to other viral communicable diseases; J45.909 Unspecified asthma, uncomplicated; M19.90 Unspecified osteoarthritis, unspecified site; G89.29 Other chronic pain; F41.9 Anxiety disorder, unspecified; Z90.49 Acquired absence of other specified parts of digestive tract; Z98.890 Other specified postprocedural states; Z60.2 Problems related to living alone; Z56.0 Unemployment, unspecified; Z88.1 Allergy status to other antibiotic agents; Z88.8 Allergy status to other drugs, medicaments and biological substances; Z79.899 Other long term (current) drug therapy
CPT/HCPCS: 99283